=== PATIENT | male | born 1985 | race Caucasian/White ===

== ENCOUNTER → 2020-02-04 07:54 | Outpatient (CLI) | payer BC, SELFPAY ==
--- NOTE | ~2020-02-04 | MR_ITS ---
EXAMINATION: MR cervical spine wo con DATE: 02/04/2020 08:37 INDICATION: Neck pain. TECHNIQUE: Magnetic resonance imaging (MRI) of the cervical spine was performed without intravenous c ontrast. Sequences included sagittal T2-weighted FSE, sagittal STIR FSE, sagittal T1-weighted FSE, ax ial MERGE, and axial T2-weighted FSE. COMPARISON: None FINDINGS: Bone alignment is normal. Vertebral body heights and intervertebral disc heights are normal . The spinal cord signal intensity is normal. The following disc levels are specifically discussed: C2-C3: The disc does not extend beyond the endplate margin. There is no uncovertebral joint osteoarth ritis. There is mild bilateral facet joint osteoarthritis. There is no neural foraminal stenosis. The re is no central canal stenosis. C3-C4: The disc does not extend beyond the endplate margin. An annular fissure is noted. There is mil d bilateral uncovertebral joint osteoarthritis. There is mild bilateral facet joint osteoarthritis. T here is mild bilateral neural foraminal stenosis. There is no central canal stenosis. C4-C5: The disc does not extend beyond the endplate margin. There is no uncovertebral joint osteoarth ritis. There is mild bilateral facet joint osteoarthritis. There is no neural foraminal stenosis. The re is no central canal stenosis. C5-C6: The disc does not extend beyond the endplate margin. An annular fissure is noted. There is no uncovertebral joint osteoarthritis. There is no facet joint osteoarthritis. There is no neural forami nal stenosis. There is no central canal stenosis. C6-C7: The disc does not extend beyond the endplate margin. An annular fissure is noted. There is no uncovertebral joint osteoarthritis. There is mild bilateral facet joint osteoarthritis. There is no n eural foraminal stenosis. There is no central canal stenosis. C7-T1: The disc does not extend beyond the endplate margin. There is no uncovertebral joint osteoarth ritis. There is mild bilateral facet joint osteoarthritis. There is no neural foraminal stenosis. The re is no central canal stenosis. IMPRESSION: 1. Mild cervical spondylosis. Reviewed, dictated and finalized at location A. [employer] TELE[employer]ION RENTAL CLERK
== END ==
PROVIDERS: Visit Provider Nurse Practitioner Family
DX: M47.813 Spondylosis without myelopathy or radiculopathy, cervicothoracic region (principal); M48.03 Spinal stenosis, cervicothoracic region
CPT/HCPCS: 72141